=== PATIENT | female | born 1945 | race Caucasian/White ===

== ENCOUNTER 2017-09-20 18:43 | Emergency (ER) | payer OTHER ==
[2017-09-20 19:41] VITALS: BP 130/80
--- NOTE | 2017-09-20 20:43 | UC ---
Lower Extremity/Ankle HPI - HPI Summary HPI Summary: Patient is a 72-year-old female presenting to the with a chief complaint of bilateral toe pain. She states she just received a new pair of shoes 5 days ago and will be did not hurt her at the time, she developed pain in the toes immediately following. She endorses swelling. She also notes that she has been traveling on a plane and feels that her lower extremities are more edematous. Denies any injury. Pain is rated an 8 out of 10, constant and throbbing. Denies fevers, sweats or chills. Denies diabetic history. Denies numbness or tingling. Denies any color or temperature changes. - History of Current Complaint Chief Complaint: UCLowerExtremity Stated Complaint: FOOT AND ANKLE COMPLAINT Time Seen by Provider: 09/20/17 19:05 Hx Obtained From: Patient ?: No Onset/Duration: Sudden Onset Severity Initially: Mild Severity Currently: Mild Pain Intensity: 8 Pain Scale Used: 0-10 Numeric Aggravating Factor(s): Standing, Ambulation Alleviating Factor(s): Rest Able to Bear Weight: No - Risk Factors Gout Risk Factors: Age Over 40 DVT Risk Factors: Recent Travel Septic Arthritis Risk Factor: Negative - Allergies/Home Medications Allergies/Adverse Reactions: Allergies Allergy/AdvReac Type Severity Reaction Status Date / Time No Known Allergies Allergy Verified 09/20/17 18:57 Home Medications: Home Medications Cholesterol Medication 1 tab PO DAILY 09/20/17 [History Confirmed 09/20/17] PMH/Surg Hx/FS Hx/Imm Hx Previously Healthy: Yes - Surgical History Surgical History: None Surgery Procedure, Year, and Place: LUMPECTOMY LEFT BREAST 01/2000 [facility] [place] - Social History Occupation: Employed Part-time Lives: With Family Alcohol Use: Rare Substance Use Type: None Smoking Status (MU): Never Smoked Tobacco Review of Systems Constitutional: Negative Respiratory: Negative Cardiovascular: Negative Motor: Negative Neurovascular: Negative Musculoskeletal: Arthralgia - bilateral large toes - throbbing without erythema or warmth Neurological: Negative Psychological: Negative Is Patient Immunocompromised?: No All Other Systems Reviewed And Are Negative: Yes Physical Exam Triage Information Reviewed: Yes Appearance: Well-Appearing, Well-Nourished Vital Signs: Initial Vital Signs Temp 98.1 F 09/20/17 18:49 Pulse 75 09/20/17 18:49 Resp 18 09/20/17 18:49 BP 166/92 09/20/17 18:49 Pulse Ox 98 09/20/17 18:49 Vital Signs Reviewed: Yes Eye Exam: Normal Eyes: Positive: Conjunctiva Clear Neck exam: Normal Neck: Positive: Supple, No Lymphadenopathy Respiratory Exam: Normal Respiratory: Positive: Chest non-tender Cardiovascular Exam: Normal Cardiovascular: Positive: RRR Musculoskeletal Exam: Normal Musculoskeletal: Positive: Strength Intact, Other: - bilateral large toes - throbbing without erythema or warmth Neurological: Positive: Alert Psychological: Positive: Normal Response To Family Skin Exam: Normal Lower Extremity Course/Dx - Course Course Of Treatment: Discussed with the patient, I believe this to be throbbing d/t swelling from the recent flight. There are no signs of infection but there are was +1 edema to the bilateral extremities including the feet. Denies any calf pain. Denies any erythema or warmth. Denies smoking history. Unlikely DVT in the bilateral lower extremities simultaneously and more likely this is an edematous overload d/t traveling. I have encouraged her to elevate her extremities, use compression stockings, ice for comfort and follow up with her PCP for any worsening or changing symptoms. - Differential Dx/Diagnosis Differential Diagnosis/HQI/PQRI: Fracture (Closed), Fracture (Open) Provider Diagnoses: Bilateral lower extremity edema Discharge - Sign-Out/Discharge Documenting (check all that apply): Discharge/Admit/Transfer - Discharge Plan Condition: Stable Disposition: HOME Patient Education Materials: Leg Edema (ED) Forms: *Work Release Referrals: Priya Islas MD [Primary Care Provider] - Additional Instructions: Decrease salt intake Increase water intake Elevate the legs Ice Ibuprofen for any discomfort and mild amount of swelling Follow up with PCP Wear stretchy shoes/socks and do not wear anything constricted to the feet For any worsening swelling, compression hose is available over the counter and help disperse the fluid back to the body - Billing Disposition and Condition Condition: STABLE Disposition: HOME
== END 2017-09-20 19:40 | disposition home or self-care (01) ==
LOC: UCEAST 18:43
DX: R60.0 Localized edema (principal); M79.675 Pain in left toe(s); M79.674 Pain in right toe(s)
CPT/HCPCS: 99211; G0463